=== PATIENT | male | born 1980 | race Caucasian/White ===

== ENCOUNTER → 2016-10-13 | Outpatient (CLI) | payer BC ==
--- NOTE | 2016-10-13 13:33 | CR ---
EXAMINATION: Right ankle HISTORY: Injury COMPARISON: None TECHNIQUE: 3 views FINDINGS: There is a nondisplaced posterior malleolus fracture noted. There is a possibly a tiny chi p fracture along the anterior aspect of the distal tibia. There is a well-corticated ossific density adjacent to the distal fibula, likely an old injury. A small periosteal line is noted along the med ial malleolus, with possible occult underlying fracture. The ankle mortise and talar dome appear int act. Moderate soft tissue swelling is noted. IMPRESSION: 1. Posterior malleolus fracture, minimally displaced. 2. Possible anterior distal tibial fracture and called fracture within the medial malleolus.
== END ==
LOC: MW.CHFP 10:10
PROVIDERS: ATTEND Physician Assistant
DX: S99.911A Unspecified injury of right ankle, initial encounter (principal); S82.891A Other fracture of right lower leg, initial encounter for closed fracture
CPT/HCPCS: 73610-26-RT; 73610-RT

== ENCOUNTER → 2016-10-22 | Outpatient (CLI) | payer BC ==
--- NOTE | 2016-10-22 13:50 | CR ---
EXAMINATION: Right tibia and fibula and right ankle HISTORY: Fracture COMPARISON: 10/13/2016 TECHNIQUE: 2 views of the tibia and fibula, single stress view of the ankle FINDINGS: There is a minimally displaced comminuted proximal fibular fracture identified. There is a posterior malleolus fracture also again noted. There is a vague lucency within the medial malleolus with possible overlying periosteal reaction, an underlying occult fracture is not excluded. There i s no definite widening of the ankle mortise with stress. Surrounding soft tissue swelling is noted. Likely old injury to the lateral malleolus distally. IMPRESSION: 1. Minimally displaced proximal fibular fracture. 2. Posterior malleolus fracture. 3. Probable hairline nondisplaced medial malleolus fracture. 4. No definite widening of the ankle mortise with stress.
== END ==
LOC: MW.CHORTHO 07:47
PROVIDERS: ATTEND Orthopaedic Surgery
DX: S82.391A Other fracture of lower end of right tibia, initial encounter for closed fracture (principal); S82.401A Unspecified fracture of shaft of right fibula, initial encounter for closed fracture; S82.892A Other fracture of left lower leg, initial encounter for closed fracture
CPT/HCPCS: 73590-26-RT; 73590-RT; 77071-26-RT; 77071-RT

== ENCOUNTER 2016-10-26 10:47 | Day surgery (SDC) | payer BC ==
[~2016-10-26 10:47] MED LIST: Lactated Ringers 1,000 ML IV SCH; ceFAZolin 1 GM in Premix Bag 1 BAG IV SCH
--- NOTE | 2016-10-26 11:12 | PCM.PREANE ---
Preanesthetic Assessment - Anesthesia/Transfusion/Family Hx Anesthesia History: Prior Anesthesia Without Reaction Transfusion History: No Prior Transfusion(s) - Physical Assessment O2 Sat by Pulse Oximetry: 99 Respiratory Rate: 16 Vital Signs: Last Vital Signs Temp 36.4 C 10/26/16 10:58 Pulse 98 10/26/16 10:58 Resp 16 10/26/16 10:58 BP 127/81 10/26/16 10:58 Pulse Ox 99 10/26/16 10:58 Height: 1.77 m Weight: 74.843 kg - Allergies Allergies/Adverse Reactions: Allergies Allergy/AdvReac Type Severity Reaction Status Date / Time No Known Allergies Allergy Verified 10/22/16 13:56 PreAnesthesia Questionnaire Other HEENT History: wears glasses/contacts Cardiovascular History: Reports: None Respiratory History: Reports: None Gastrointestinal History: Reports: GERD Genitourinary History: Reports: None Musculoskeletal History: Reports: None Neurological History: Reports: None Psychiatric History: Reports: None Endocrine/Metabolic History: Reports: None Hematologic History: Reports: None Immunologic History: Reports: None Oncologic (Cancer) History: Reports: None Dermatologic History: Reports: None - Past Surgical History Head Surgeries/Procedures: Reports: None HEENT Surgical History: Reports: None Cardiovascular Surgical History: Reports: None Respiratory Surgical History: Reports: None GI Surgical History: Reports: EGD Male Surgical History: Reports: None Endocrine Surgical History: Reports: None Neurological Surgical History: Reports: None Musculoskeletal Surgical History: Reports: None Oncologic Surgical History: Reports: None Dermatological Surgical History: Reports: None - SUBSTANCE USE Smoking Status *Q: Current Every Day Smoker Tobacco Use Within Last Twelve Months: Cigarettes Recreational Drug Use History: No - HOME MEDS Home Medications: Home Meds Pantoprazole Sodium 1 tab PO DAILY 10/22/16 [History] - CURRENT (IN HOUSE) MEDS Current Meds: Current Medications Lactated Ringer's (Ringers, Lactated) 1,000 mls @ 100 mls/hr IV ASDIRECTED [facility] Cefazolin Sodium/Dextrose 1 gm (/ Premix) 50 mls @ 100 mls/hr IV ONCALL [facility] Preanesthetic Assessment - ANESTHESIA/TRANSFUSION/FAMILY HX Family History of Anesthesia Reaction: No - PHYSICAL ASSESSMENT O2 Sat by Pulse Oximetry: 99 RR: 16 Vital Signs: Last Vital Signs Temp 36.4 C 10/26/16 10:58 Pulse 98 10/26/16 10:58 Resp 16 10/26/16 10:58 BP 127/81 10/26/16 10:58 Pulse Ox 99 10/26/16 10:58 Height: 1.77 m Weight: 74.843 kg - ALLERGIES Allergies/Adverse Reactions: Allergies Allergy/AdvReac Type Severity Reaction Status Date / Time No Known Allergies Allergy Verified 10/22/16 13:56
--- NOTE | 2016-10-26 11:20 | PCM.PREANE ---
Preanesthetic Assessment - Anesthesia/Transfusion/Family Hx Anesthesia History: Prior Anesthesia Without Reaction Family History of Anesthesia Reaction: No Transfusion History: No Prior Transfusion(s) - Review of Systems General: No Symptoms Pulmonary: No Symptoms Cardiovascular: No Symptoms Gastrointestinal: No symptoms Neurological: No Symptoms Other: Reports: None - Physical Assessment NPO Status Date: 10/25/16 NPO Status Time: 22:00 O2 Sat by Pulse Oximetry: 99 Respiratory Rate: 16 Vital Signs: Last Vital Signs Temp 36.4 C 10/26/16 10:58 Pulse 98 10/26/16 10:58 Resp 16 10/26/16 11:12 BP 127/81 10/26/16 10:58 Pulse Ox 99 10/26/16 11:12 Height: 1.77 m Weight: 74.843 kg ASA Class: 2 Mental Status: Alert & Oriented x3 Airway Class: Mallampati = 2 Dentition: Reports: Broken Tooth/Teeth, Caries (kenny gingival decay "meth mouth " pattern) ROM/Head Extension: Full Lungs: Clear to auscultation, Normal respiratory effort Cardiovascular: Regular Rate, Regular Rhythm - Allergies Allergies/Adverse Reactions: Allergies Allergy/AdvReac Type Severity Reaction Status Date / Time No Known Allergies Allergy Verified 10/22/16 13:56 - Blood Blood Available: No - Anesthesia Plan Pre-Op Medication Ordered: None - Acknowledgements Anesthesia Type Planned: General Anesthesia Pt an Appropriate Candidate for the Planned Anesthesia: Yes Alternatives and Risks of Anesthesia Discussed w Pt/Guardian: Yes Pt/Guardian Understands and Agrees with Anesthesia Plan: Yes PreAnesthesia Questionnaire Other HEENT History: wears glasses/contacts Cardiovascular History: Reports: None Respiratory History: Reports: None Gastrointestinal History: Reports: GERD Genitourinary History: Reports: None Musculoskeletal History: Reports: None Neurological History: Reports: None Psychiatric History: Reports: None Endocrine/Metabolic History: Reports: None Hematologic History: Reports: None Immunologic History: Reports: None Oncologic (Cancer) History: Reports: None Dermatologic History: Reports: None - Past Surgical History Head Surgeries/Procedures: Reports: None HEENT Surgical History: Reports: None Cardiovascular Surgical History: Reports: None Respiratory Surgical History: Reports: None GI Surgical History: Reports: EGD Male Surgical History: Reports: None Endocrine Surgical History: Reports: None Neurological Surgical History: Reports: None Musculoskeletal Surgical History: Reports: None Oncologic Surgical History: Reports: None Dermatological Surgical History: Reports: None - SUBSTANCE USE Smoking Status *Q: Current Every Day Smoker Tobacco Use Within Last Twelve Months: Cigarettes Recreational Drug Use History: No - HOME MEDS Home Medications: Home Meds Pantoprazole Sodium 1 tab PO DAILY 10/22/16 [History] - CURRENT (IN HOUSE) MEDS Current Meds: Current Medications Lactated Ringer's (Ringers, Lactated) 1,000 mls @ 100 mls/hr IV ASDIRECTED [facility] Last Admin: 10/26/16 11:00 Dose: 100 mls/hr Cefazolin Sodium/Dextrose 1 gm (/ Premix) 50 mls @ 100 mls/hr IV ONCALL [facility] Preanesthetic Assessment - ANESTHESIA/TRANSFUSION/FAMILY HX Family History of Anesthesia Reaction: No - PHYSICAL ASSESSMENT O2 Sat by Pulse Oximetry: 99 RR: 16 Vital Signs: Last Vital Signs Temp 36.4 C 10/26/16 10:58 Pulse 98 10/26/16 10:58 Resp 16 10/26/16 11:12 BP 127/81 10/26/16 10:58 Pulse Ox 99 10/26/16 11:12 Height: 1.77 m Weight: 74.843 kg - ALLERGIES Allergies/Adverse Reactions: Allergies Allergy/AdvReac Type Severity Reaction Status Date / Time No Known Allergies Allergy Verified 10/22/16 13:56
[2016-10-26] MEDS ORDERED: Propofol 200 MG/20 ML SDV ONE (11:53)
[2016-10-26] MEDS ORDERED: Midazolam 1 MG/ML 2 ML SDV ONE (11:53)
[2016-10-26] MEDS ORDERED: Lidocaine 2% 5 ML SDV ONE (11:53)
[2016-10-26] MEDS ORDERED: Ondansetron 4 MG/2 ML SDV ONE (11:53)
[2016-10-26] MEDS ORDERED: Rocuronium 10 MG/ML 10 ML Syringe ONE (11:53)
[2016-10-26] MEDS ORDERED: fentaNYL 250 MCG/5 ML SDV ONE ×2 (11:53→12:52)
[2016-10-26] MEDS ORDERED: ceFAZolin 1 GM Vial ONE (12:30)
[2016-10-26] MEDS ORDERED: Sodium Chloride 0.9% 20 ML ONE (12:30)
[2016-10-26] MEDS ORDERED: metroNIDAZOLE/Normal Saline 500 MG in Premix Bag 1 BAG IV ONE (12:37)
[2016-10-26] MEDS ORDERED: HYDROmorphone 2 MG/ML Syringe ONE (12:38)
--- NOTE | 2016-10-26 13:31 | PCM.OPNOTE ---
- General Post-Op/Procedure Note Date of Surgery/Procedure: 10/26/16 Operative Procedure(s): ORIF R ankle syndesmosis Post-Op Diagnosis: R ankle syndesmotic injury. R posterior malleolus fracture. R proximal fibula fracture Anesthesia Technique: General ET tube Primary Surgeon: Sangita Andrade Vocational Rehabilitation Specialist: Elly Davis Vocational Rehabilitation Specialist: Slick Martínez EBL in mLs: 5 Condition: Good Free Text/Narrative:: tt=22 min #[id number]
[2016-10-26] MEDS ORDERED: fentaNYL 100 MCG/2 ML SDV IVPUSH PRN (13:34)
[2016-10-26] MEDS ORDERED: Meperidine PF 25 MG/ML Syringe IV ONE (13:34)
[2016-10-26] MEDS ORDERED: HYDROmorphone 2 MG/ML Syringe IVPUSH PRN (13:34)
[2016-10-26] MEDS ORDERED: Meperidine PF 50 MG/ML Syringe ONE (13:48)
--- NOTE | 2016-10-26 13:57 | PCM.POSTAN ---
POST ANESTHESIA ASSESSMENT - MENTAL STATUS Mental Status: alert, oriented, somnolent - RESPIRATORY Respiratory Status: respiratory rate WNL, airway patent, O2 saturation stable, supplemental oxygen - CARDIOVASCULAR CV Status: pulse rate WNL, blood pressure stable - GASTROINTESTINAL GI Status: no symptoms - PAIN Pain Score: 4 (Pt resting comfortably) - POST OP HYDRATION Hydration Status: adequate & stable
--- NOTE | 2016-10-26 14:27 | OR ---
SURGEON: Sangita Andrade MD DATE OF PROCEDURE: 10/26/2016 PREOPERATIVE DIAGNOSES: 1. Right ankle syndesmotic injury. 2. Right ankle posterior malleolus fracture. 3. Right proximal fibula fracture. POSTOPERATIVE DIAGNOSES: 1. Right ankle syndesmotic injury. 2. Right ankle posterior malleolus fracture. 3. Right proximal fibula fracture. PROCEDURE: Open reduction and internal fixation, right ankle syndesmosis. ASSISTANTS: 1. Elly Davis MD, PGY-2. 2. Slick Martínez PA-C. ANESTHESIA: General. ESTIMATED BLOOD LOSS: 5 mL. COMPLICATIONS: None. DVT PROPHYLAXIS: Not indicated. IMPLANTS USED: Arthrex 4-hole semitubular plate with 2 cancellous screws and 2 TightRope syndesmosis fixation systems. BRIEF HISTORY: Stephan is a 36-year-old male, who slipped on the ice. He complained of pain in his right ankle. He was evaluated and found to have a fracture of the right posterior malleolus as well as the proximal fibula. Ankle x-rays did show widening of the ankle mortise. At that time, I recommended surgical intervention. The risks and goals of procedure were discussed with the patient and were documented preoperatively. He agreed to proceed. Upon induction of anesthesia, it was noted that he had a mass along the anterior aspect of the right side of his neck. It did not appear to be firmly fixed. It was noted that he had poor dentition as well. It was felt that he may have an abscess. He was given 500 mg of Flagyl IV in addition to the Ancef. We will instruct him to follow up with his primary care provider for the mass. DESCRIPTION OF PROCEDURE: The patient was properly identified and brought to the operating room. He was transferred from the OR cart and placed on the operating table in supine position. General anesthesia was administered. After adequate anesthesia was obtained, a well-padded tourniquet was applied to the right lower extremity. The right lower extremity was then prepped in standard fashion using ChloraPrep solution. It was then sterilely draped. A time-out was performed to ensure correct site and procedure. Preoperative antibiotics were given. The surgical site had been marked preoperatively. An Esmarch was used to exsanguinate the right lower extremity and the tourniquet was inflated to 250 mmHg. The 4-hole plate was then approximated overlying the skin. Once I felt there was adequate position of the plate, an incision was made over the lateral aspect of the ankle. Subcutaneous tissues were incised. The superficial peroneal nerve was not encountered. The periosteum was elevated from the bone. The plate was then placed. Its position was checked using C-arm fluoroscopy. It was felt that it was in the right position to maintain 2 TightRope. The screws that were supplied with the kit were then placed in a proximal and distal holes without difficulty. A 3.5 mm drill was then used to drill through the 4 cortices. The TightRope fixation system was then passed. The EndoButton was deployed along the medial cortex of the of the tibia. The large periarticular clamp was then placed on the medial and lateral malleolus. It was clamped into position with the foot in a slightly plantar flexed position. The TightRope was then tightened into place. The clamp was then removed. C-arm imaging showed that the fixation system was approximately 1 cm proximal to the ankle plafond. An external rotation stress view showed no further widening of the syndesmosis. An additional TightRope was placed in a similar manner and tightened into position. Final C-arm images confirmed adequate reduction of the syndesmosis. The wound was then copiously irrigated with saline solution. The deep tissues were closed with 0 Vicryl overlying the plate. The subcutaneous tissues were closed with 2- 0 Monocryl. The skin was closed with beatrice. Xeroform gauze was placed over the wound and a bulky dressing was applied. He was placed in a well-padded posterior splint with medial and lateral stabilizing slabs. He was awakened from his anesthetic and transferred back to the operating room cart. He was brought to recovery room in stable condition. All needle and sponge counts were correct. SCHUYLER / RADHA /[id number]
--- NOTE | 2016-10-26 14:44 | CR ---
EXAMINATION: Right ankle HISTORY: ORIF COMPARISON: 10/22/2016 TECHNIQUE: 6 intraoperative images. FINDINGS/IMPRESSION: Operative control films demonstrate screw and plate fixation of the distal fibu la with 2 syndesmotic anchors placed. A posterior malleolus fracture again noted.
[2016-10-26 15:06] VITALS: BP 148/82
--- NOTE | 2016-10-26 15:34 | PCM48HPAN ---
Post Anesthesia Note - EVALUATION WITHIN 48HRS OF ANESTHETIC Vital Signs in Normal Range: Yes Patient Participated in Evaluation: Yes Respiratory Function Stable: Yes Airway Patent: Yes Cardiovascular Function Stable: Yes Hydration Status Stable: Yes Pain Control Satisfactory: Yes Nausea and Vomiting Control Satisfactory: Yes Mental Status Recovered: Yes
== END 2016-10-26 16:09 | disposition home or self-care (01) ==
LOC: MW.SDS 10:47
PROVIDERS: ATTEND Orthopaedic Surgery
PROC: 0QSG04Z Reposition Right Tibia with Internal Fixation Device, Open Approach (ICD-10-PCS; principal; 2016-10-26)
DX: S93.431A Sprain of tibiofibular ligament of right ankle, initial encounter (principal); S82.831A Other fracture of upper and lower end of right fibula, initial encounter for closed fracture; K21.9 Gastro-esophageal reflux disease without esophagitis; F17.210 Nicotine dependence, cigarettes, uncomplicated; Z79.899 Other long term (current) drug therapy; Z98.890 Other specified postprocedural states
CPT/HCPCS: 27829; 76000; J0690; J1170; J2175; J2250; J2405; J3010; J7120; 01480; C1713; J2704

== ENCOUNTER → 2016-12-02 | Outpatient (CLI) | payer BC ==
--- NOTE | 2016-12-03 14:36 | CR ---
EXAM DATE: 12/02/16 PATIENT'S AGE: 36 Patient: YANELY CASTAÑEDA Facility: [place], [place] Site . Site : 1980 Study: XRay Extremity Right Ankle [id number]/26/2017 11:20:45 AM Ordering Physician: Raymond Quesada Final Report: HISTORY: Followup fracture. Findings: Three views of the right ankle are compared to 05 November 2016. The cast has been removed. A lateral compression plate and 2 screws fix the distal fibula. Hardware intact. There is syndesmotic tension device in place. The mortise is intact. There is a vertical nondisplaced fracture of the posterior malleolus. There is subchondral lucency seen of the talar dome most likely from disuse osteoporosis. Impression: 1. Compression plate fixing the distal fibula in anatomic alignment. 2. Syndesmotic space device is in place with intact mortise. 3. Vertical nondisplaced fracture through the posterior malleolus. 4. 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 Dictated by Ce Mittal MD @ Dec 03 2016 1:51AM (Electronic Signature) Report Signed by Proxy. ENEDINA
--- NOTE | 2016-12-03 14:37 | CR ---
EXAM DATE: 12/02/16 PATIENT'S AGE: 36 Patient: YANELY CASTAÑEDA Facility: [place], [place] : 1980 Study: XRay Extremity Right Tib/Fib [id number]/26/2017 11:21:57 AM Ordering Physician: Raymond Quesada Final Report: HISTORY: Fracture. Technique: Two views of the right tibia and fibula. Comparison: 11/05/2016. Findings: No change in alignment of the minimally displaced obliquely oriented fracture of the proximal right fibular shaft. There is some limited callus formation about the fracture but the fracture does not appear completely healed as of yet. Prior lateral sideplate and screw fixation of the distal fibula along with syndesmotic reconstruction. Small ossicle adjacent to the tip of the fibula appears corticated and chronic. Impression: 1. No change in alignment of minimally displaced proximal fibular shaft fracture. 2. Postsurgical changes of prior lateral sideplate and screw fixation of the distal fibula along with syndesmotic reconstruction. Dictated by Rufus Obregon MD @ Dec 03 2016 1:05PM (Electronic Signature) Report Signed by Proxy. ENEDINA
== END ==
LOC: MW.CHORTHO 07:52
PROVIDERS: ATTEND Orthopaedic Surgery
DX: S82.391A Other fracture of lower end of right tibia, initial encounter for closed fracture (principal); S82.831A Other fracture of upper and lower end of right fibula, initial encounter for closed fracture; Z98.890 Other specified postprocedural states; Z96.7 Presence of other bone and tendon implants; M85.88 Other specified disorders of bone density and structure, other site
CPT/HCPCS: 73590-26-RT; 73590-RT; 73610-26-RT; 73610-RT

== ENCOUNTER 2021-10-15 12:17 | Emergency (ER) | payer SELFPAY ==
[2021-10-15 15:07] LABS: CORONAVIRUS COVID-19 NAA NEGATIVE (NEGATIVE); INFLUENZA A NAA NEGATIVE (NEGATIVE); INFLUENZA B NAA NEGATIVE (NEGATIVE)
[2021-10-15 15:36] VITALS: BP 135/76; PULSE 98
== END 2021-10-15 15:30 | disposition home or self-care (01) ==
LOC: MW.ED 12:17
DX: J06.9 Acute upper respiratory infection, unspecified (principal); Z20.822 Contact with and (suspected) exposure to COVID-19
CPT/HCPCS: 0240U; 87651; 99283

== ENCOUNTER 2022-05-08 23:37 | Emergency (ER) | payer SELFPAY ==
[2022-05-09 00:59] VITALS: BP 142/82; PULSE 76
== END 2022-05-09 00:40 ==
LOC: MW.ED 23:37
DX: S20.211A Contusion of right front wall of thorax, initial encounter (principal); R07.9 Chest pain, unspecified; F10.129 Alcohol abuse with intoxication, unspecified; F17.210 Nicotine dependence, cigarettes, uncomplicated; W19.XXXA Unspecified fall, initial encounter
CPT/HCPCS: 70450; 70450-26; 71045; 71045-26; 99283; 99284